=== PATIENT | female | born 1935 | race Caucasian/White ===

== ENCOUNTER → 2016-07-29 | Outpatient (CLI) | payer MEDICARE, OTHER ==
[~2016-07-29] MED LIST: CIPROFLOXACIN500 MG PO; PYRIDIUM100 MG PO
== END | disposition home or self-care (01) ==
LOC: MAMMO 10:39
DX: Z12.31 Encounter for screening mammogram for malignant neoplasm of breast (principal); R92.1 Mammographic calcification found on diagnostic imaging of breast

== ENCOUNTER 2023-08-28 16:07 | Emergency (ER) | payer MEDICARE, OTHER ==
[2023-08-28] MEDS ORDERED: Morphine Sulfate 10 MG/0.5 ML CONCENTRATE ORAL SYRINGE SL ONE ×3 (19:25→22:30)
[2023-08-28] MEDS ORDERED: LORazepam 1 MG TAB PO ONE (20:40)
[2023-08-29] MEDS ORDERED: Morphine Sulfate 10 MG/0.5 ML CONCENTRATE ORAL SYRINGE SL ONE (02:50)
== END 2023-08-29 06:48 ==
LOC: ED 16:07
DX: I46.9 Cardiac arrest, cause unspecified (principal); J84.10 Pulmonary fibrosis, unspecified; I10 Essential (primary) hypertension